=== PATIENT | female | born 1985 | race Caucasian/White ===

== ENCOUNTER 2021-05-22 | Emergency (ER) | payer OTHER ==
[~2021-05-22] VITALS: Ht 188 cm; Wt 85.7 kg
[2021-05-22 00:10] VITALS: BP 141/88
--- NOTE | 2021-05-22 00:28 | NUR ---
LABS BEING DRAWN IN [facility]. PATIENT AMBUALTED TO LOBBY WITH STEADY GAIT.
[2021-05-22 00:35] LABS: BASOPHILS % (AUTO) 0.4 % (0.0-2.0); EOSINOPHILS # (AUTO) 0.2 K/uL (0-0.4); EOSINOPHILS % (AUTO) 2.9 % (0.0-4.0); HEMATOCRIT 36.2 % (36-48); HEMOGLOBIN 11.8 g/dL (12.0-16.0); LYMPHOCYTES # (AUTO) 2.7 K/uL (2.5-16.5); LYMPHOCYTES % (AUTO) 39.4 % (20.5-51.1); MEAN CORPUSCULAR HEMOGLOBIN 32 pg (27-31); MEAN CORPUSCULAR HGB CONC 33 g/dL (33-37); MEAN CORPUSCULAR VOLUME 96.9 fL (80-94); MONOCYTES # (AUTO) 0.7 K/uL (0.8-1.0); MONOCYTES % (AUTO) 10.1 % (1.7-9.3); NEUTROPHILS # (AUTO) 3.2 K/uL (1.8-7.7); NEUTROPHILS % (AUTO) 47.2 % (42.2-75.2); PLATELET COUNT (AUTO) 209 K/uL (140-450); RED BLOOD CELL COUNT(AUTO) 3.73 MIL/uL (4.20-5.40); WHITE BLOOD COUNT (AUTO) 6.9 K/uL (4.8-10.8)
--- NOTE | 2021-05-22 00:37 | NUR ---
PT RETURN FROM [facility] TO [facility]
[2021-05-22 01:02] LABS: ALBUMIN 3.9 g/dL (3.4-5.0); ANION GAP 11.7 (8-16); CARBON DIOXIDE 27.2 mmol/L (21-32); CREATININE 0.9 mg/dL (0.6-1.3); POTASSIUM 3.9 mmol/L (3.5-5.1); TOTAL BILIRUBIN 0.3 mg/dL (0.0-1.0)
--- NOTE | 2021-05-22 01:30 | NUR ---
PT BIB SELF FOR C/O 05/17 STERNAL CHEST PAIN THAT IS INTERMITTENT AND LASTS 1 SECOND AT A TIME. PT REPORTS THIS HAS BEEN GOING ON FOR 1 DAY. PT STATES "IT WILL FEEL LIKE I GOT PUNCHED AND THEN IT GOES AWAY." PAIN DOES NOT RADIATE. PT REPORTS HX OF ANXIETY BUT STATES "I KNOW THAT THAT FEELS LIKE BUT THIS IS DIFFERENT." SKIN IS WARM AND DRY. MED HX: ANXIETY ALLERGIES: NKA
--- NOTE | 2021-05-22 02:22 | NUR ---
ERMD AT BEDSIDE.
--- NOTE | 2021-05-22 02:35 | NUR ---
Patient discharged with v/s stable. Written and verbal after care instructions given and explained. Patient verbalized understanding. Ambulatory with steady gait. All questions addressed prior to discharge. Advised to follow up with PMD.
== END 2021-05-22 02:35 | disposition home or self-care (01) ==
LOC: MED
DX: R07.9 Chest pain, unspecified (principal); F41.9 Anxiety disorder, unspecified
CPT/HCPCS: 36415; 71045; 80053; 84484; 85025; 93005; 99285

== ENCOUNTER 2021-09-06 10:56 | Emergency (ER) | payer OTHER ==
[~2021-09-06] VITALS: Ht 180.3 cm; Wt 87.1 kg
[2021-09-06 11:14] VITALS: BP 122/75
--- NOTE | 2021-09-06 11:48 | NUR ---
36 Y FEMALE WITH C/O VAGINAL PAIN, LOWER BACK PAIN, URINARY FREQUENCY, AND DYRUSIRA X3 DAYS. PT IS CURRENTLY AT 18 WEEKS. PT ALSO STATED SHE HAS EXPERINCED LOWER ABDOMINAL CRAMPING ALONG WITH WHITE DISCHARGE. DENIES ANY ODOR AT THIS TIME HAD CHLAMYDIA & SEEN HERE TODAY. PMH: DENIES NKA
--- NOTE | 2021-09-06 11:49 | NUR ---
DR. DINERO BEDSIDE EVALUATING PT
--- NOTE | 2021-09-06 12:01 | NUR ---
lab bedside with patient
[2021-09-06 12:07] LABS: APPEARANCE,URINE CLEAR (CLEAR); BILIRUBIN,URINE NEGATIVE (NEGATIVE); BLOOD, URINE NEGATIVE (NEGATIVE); COLOR,URINE YELLOW (YELLOW); LEUKOCYTE ESTERASE ,URINE NEGATIVE (NEGATIVE); NITRITE, URINE NEGATIVE (NEGATIVE); PH,URINE 6.5 (5.0-9.0); UGLUCOSE NEGATIVE (NEGATIVE)
[2021-09-06 12:33] LABS: BASOPHILS % (AUTO) 0.1 % (0.0-2.0); EOSINOPHILS # (AUTO) 0.1 K/uL (0-0.4); EOSINOPHILS % (AUTO) 1.4 % (0.0-4.0); HEMATOCRIT 34.3 % (36-48); HEMOGLOBIN 11.4 g/dL (12.0-16.0); LYMPHOCYTES # (AUTO) 1.8 K/uL (2.5-16.5); LYMPHOCYTES % (AUTO) 22.5 % (20.5-51.1); MEAN CORPUSCULAR HEMOGLOBIN 32 pg (27-31); MEAN CORPUSCULAR HGB CONC 33 g/dL (33-37); MEAN CORPUSCULAR VOLUME 96.8 fL (80-94); MONOCYTES # (AUTO) 0.6 K/uL (0.8-1.0); MONOCYTES % (AUTO) 7.2 % (1.7-9.3); NEUTROPHILS # (AUTO) 5.5 K/uL (1.8-7.7); NEUTROPHILS % (AUTO) 68.8 % (42.2-75.2); PLATELET COUNT (AUTO) 185 K/uL (140-450); RED BLOOD CELL COUNT(AUTO) 3.54 MIL/uL (4.20-5.40); RED CELL DISTRIBUTION WIDTH 13.4 % (11.6-13.7)
[2021-09-06 12:51] LABS: ALBUMIN 3.1 g/dL (3.4-5.0); ANION GAP 12.9 (8-16); CARBON DIOXIDE 25.9 mmol/L (21-32); CREATININE 0.7 mg/dL (0.6-1.3); POTASSIUM 3.8 mmol/L (3.5-5.1); TOTAL BILIRUBIN 0.4 mg/dL (0.0-1.0)
--- NOTE | 2021-09-06 13:03 | NUR ---
WET MOUNT AND CULTURES COLLECTED DURING PELVIC EXAM. SWABS WALKED OVER TO LAB
--- NOTE | 2021-09-06 13:03 | NUR ---
Female [employer] accompanied female patient for Pelvic Exam.
[2021-09-06 14:05] VITALS: BP 112/72
== END 2021-09-06 14:05 | disposition home or self-care (01) ==
LOC: MED 10:56
DX: O46.8X2 Other antepartum hemorrhage, second trimester (principal); Z3A.18 18 weeks gestation of pregnancy
CPT/HCPCS: 36415; 80053; 81003; 81025; 84702; 85025; 86592; 86900; 86901; 87210; 87491; 99284